=== PATIENT | male | born 1965 | race Asian ===

== ENCOUNTER 2018-03-22 10:14 | Emergency (ER) | payer MEDICARE, OTHER ==
[~2018-03-22] VITALS: Ht 160 cm; Wt 63.6 kg
[2018-03-22] MEDS ORDERED: METF-960 PO (10:37)
[2018-03-22 10:43] LABS: GLUCOSE,POINT OF CARE 127 MG/DL (70-110)
[2018-03-22 12:21] VITALS: BP 115/60
== END 2018-03-22 12:23 | disposition home or self-care (01) ==
LOC: EMS 10:16
DX: R19.7 Diarrhea, unspecified (principal); F17.210 Nicotine dependence, cigarettes, uncomplicated; E11.9 Type 2 diabetes mellitus without complications; Q36.9 Cleft lip, unilateral; Z79.84 Long term (current) use of oral hypoglycemic drugs